=== PATIENT | male | born 1980 | race Caucasian/White ===

== ENCOUNTER 2020-11-07 16:44 | Emergency (ER) | payer SELFPAY ==
[~2020-11-07] VITALS: Ht 177.8 cm; Wt 68.0 kg
[2020-11-07 17:02] VITALS: BP 134/75
[2020-11-07] MEDS ORDERED: LIDOCAINE MPF 1% 5 ML ONE (17:39)
[2020-11-07] MEDS ORDERED: cefTRIAXone 1,000 MG VIAL ONE (17:39)
[2020-11-07] MEDS: cefTRIAXone 1,000 MG in LIDOCAINE MPF 1% 2.1 ML IM ONE (17:44)
[2020-11-07] MEDS ORDERED: IBUP-2213 PO (17:53)
[2020-11-07] MEDS ORDERED: DOXY100C9 PO (17:53)
[2020-11-07 18:00] VITALS: BP 134/75
== END 2020-11-07 17:58 | disposition home or self-care (01) ==
LOC: MED 16:44
DX: N48.22 Cellulitis of corpus cavernosum and penis (principal)
CPT/HCPCS: 36415; 81002; 87491; 96372; 99283; J0696; J2001

== ENCOUNTER 2020-11-25 23:30 | Emergency (ER) | payer SELFPAY ==
[~2020-11-25] VITALS: Ht 177.8 cm; Wt 77.1 kg
[~2020-11-25 23:30] MED LIST: DOXY100C9 PO; IBUP-2213 PO
[2020-11-25 23:35] VITALS: BP 121/65
--- NOTE | 2020-11-25 23:35 | NUR ---
to bed ambulatory
[2020-11-25 23:44] VITALS: BP 121/65
--- NOTE | 2020-11-25 23:50 | NUR ---
40/M BIB SELF C/O OF PENILE DISCHARGE AND BURNING PAIN /10 WHEN HAVING INTERCOURSE OR PEEING FOR A MONTH. PT STATES HE WAS SEEN 3 WEEKS AGO FOR STD BUT WAS NON-COMPLIANT WITH HIS MEDS. PMH: HEP C, STD NKDA
--- NOTE | 2020-11-25 23:59 | NUR ---
DR. OLIVER AT BEDSIDE EXAMINING PATIENT
[2020-11-26] MEDS ORDERED: cefTRIAXone 500 MG in LIDOCAINE MPF 1% 1 ML IM ONE (00:05)
[2020-11-26] MEDS ORDERED: DOXY100C9 PO (00:06)
[2020-11-26] MEDS ORDERED: NAPR-54 PO (00:06)
[2020-11-26] MEDS ORDERED: LIDOCAINE MPF 1% 5 ML ONE (00:23)
[2020-11-26] MEDS ORDERED: cefTRIAXone 500 MG VIAL ONE (00:23)
--- NOTE | 2020-11-26 00:31 | NUR ---
d/c with VSS. d/c education given. opportunity to ask questions given and answered. rx of naprosyn and vibramycin given.
== END 2020-11-26 00:31 | disposition home or self-care (01) ==
LOC: MED 23:30
DX: A64 Unspecified sexually transmitted disease (principal); Z79.899 Other long term (current) drug therapy
CPT/HCPCS: 96372; 99283; J0696; J2001